=== PATIENT | female | born 1980 | race Caucasian/White ===

== ENCOUNTER 2024-08-24 10:15 | Emergency (ER) | payer OTHER, SELFPAY ==
--- NOTE | ~2024-08-24 | XR_ITS ---
XR foot LT min 3V Ordering provider: Carleen Calderón NP History: . lateral pain near 5th metatarsal Lt foot . Comparison: None. FINDINGS: BONES: No acute fracture or dislocation. JOINT SPACES: Normal. No tarsal coalition. SOFT TISSUES: Normal. Calcaneal spur. Ossification of the insertion of the tendo Achilles. IMPRESSION: No acute osseous abnormality left foot. Reviewed, dictated and finalized at location A.
[2024-08-24 10:35] VITALS: BP 133/78; PULSE 64; RESP 16; TEMP 36.2; O2SAT 100
--- NOTE | 2024-08-24 11:04 | ED.GENADULT ---
HPI - General Adult General Chief complaint: Extremity Injury, Lower Stated complaint: Injured Left Foot Time Seen by Provider: 08/24/24 11:00 Source: patient, RN notes reviewed and old records reviewed Mode of arrival: ambulatory Limitations: no limitations History of Present Illness HPI narrative: 44 year old female who presents to [facility] care with complaints of pain to the lateral aspect of her left foot near her distal 5th metatarsal region. 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 Patient reports that she does not know of any specific injury to her foot, no fall and did not step in hole. No bruising or swelling noted or any signs of injury full mobility of foot and toes, able to ambulate without limp noted. MD complaint: pain to lateral left distal metatarsal region Onset (ago): week(s) (1 week) Location: lower extremity (left lateral foot) Radiation: non-radiation Severity scale (1-10): 3 Quality: aching Treatments prior to arrival: none Related Data Home Medications ?Medication ?Instructions ?Recorded ?Confirmed ?Last Taken ?Type No Home Medications 08/24/24 08/24/24 Unknown History Allergies Allergy/AdvReac Type Severity Reaction Status Date / Time No Known Allergies Allergy Verified 08/24/24 12:47 Review of Systems Review of Systems: CONSTITUTIONAL: Denies fever, chills, or sweats. EYES: Denies visual changes, redness, or discharge. ENT: Denies rhinorrhea, congestion, sore throat, or otalgia. CARDIOVASCULAR: Denies chest pain, palpitations, or edema. RESPIRATORY: Denies cough or dyspnea. GASTROINTESTINAL: Denies abdominal pain, nausea, vomiting, or diarrhea. GENITOURINARY: Denies dysuria or hematuria. SKIN: Denies rash or itching. MUSCULOSKELETAL: Denies back pain,pain to lateral aspect of distal 5th metatarsal region, or myalgia. NEUROLOGIC: Denies headache, numbness, or weakness. PSYCHIATRIC: Denies anxiety or depression. All systems reviewed & are unremarkable except as noted in HPI and below PMFSH Surgical History Surgical History (Updated 08/25/24 @ 12:25 by Carleen Calderón NP) History of cholecystectomy Social History Social History (Updated 08/25/24 @ 12:26 by Carleen Calderón NP) Gender identity (if verbalized by the patient): Female Comments At time of signature, agree with nursing past medical, surgical, social and family history. There is no relevant family history pertinent to the presenting complaint Exam Narrative: GENERAL: Well-appearing, well-nourished, and in no acute distress. HEAD: Normocephalic, atraumatic. EYES: PERRLA and EOMI. ENT: Nares clear, no rhinorrhea or epistaxis. Mucous membranes moist.TM's normal with good light reflex, throat pink with no swelling noted. NECK: Supple.no lymphadenopathy CHEST: Clear to auscultation. No respiratory distress.SAO2 100% on room air HEART: Regular rate and rhythm. No murmur heard. Normal peripheral pulses. ABDOMEN: Soft, nontender, nondistended, normal active bowel sounds. EXTREMITIES: Normal range of motion. No edema.Reports pain to the distal left lateral aspect of base of 5th metatarsal area with no bruising or swelling noted, CSM intact. Patient is able to apply full weight bearing to her foot and ambulates without limp. SKIN: Warm, dry, no rash. NEURO: No focal deficits. Alert and oriented x3. Course Course Emergency Course: Patient is aware of diagnosis, understands and agrees to treatment plan.? Anticipatory guidance given.? Patient agrees to follow-up as directed and is aware of reasons to seek care at the emergency department. Portions of this record may have been created with voice recognition software Level of Care: Express Care Visit Vital Signs Vital signs: Vital Signs Temperature 36.2 C L 08/24/24 10:35 Pulse Rate 64 08/24/24 10:35 Respiratory Rate 16 08/24/24 10:35 Blood Pressure 133/78 08/24/24 10:35 Pulse Oximetry 100 08/24/24 10:35 Temperature 36.2 C L 08/24/24 10:35 Pulse Rate 64 08/24/24 10:35 Respiratory Rate 16 08/24/24 10:35 Blood Pressure 133/78 08/24/24 10:35 Pulse Oximetry 100 08/24/24 10:35 Reviewed Medical Decision Making MDM Narrative Medical decision making narrative: Exam findings and imaging show no acute concerns or changes; patient is non-toxic appearing and is in no distress.? Patient is appropriate for outpatient treatment and follow-up Differential Diagnosis Differential Diagnosis: left lateral foot pain base of 5th metatarsal area, sprain left foot, fracture of foot Medical Records Medical records reviewed: Yes I reviewed the external patient's medical records. Vital Signs Vital Signs: Vital Signs Temperature 36.2 C L 08/24/24 10:35 Pulse Rate 64 08/24/24 10:35 Respiratory Rate 16 08/24/24 10:35 Blood Pressure 133/78 08/24/24 10:35 Pulse Oximetry 100 08/24/24 10:35 Temperature 36.2 C L 08/24/24 10:35 Pulse Rate 64 08/24/24 10:35 Respiratory Rate 16 08/24/24 10:35 Blood Pressure 133/78 08/24/24 10:35 Pulse Oximetry 100 08/24/24 10:35 reviewed Imaging Data Attestation: I personally reviewed and interpreted this imaging study as follows: My impression: no fracture noted to left foot Radiologist's impression: [address] [place], [place] [id number] XRay Report Signed Patient: Brianna Dewey : 1980 MR#: [id number] Age: 44 Acct:[id number] [facility]: [facility] ADM Date: 08/24/24Attending Dr: Ordering Physician: Carleen Calderón APRN Date of Service: 08/24/24 Procedure(s): XR foot LT min 3V Accession Number(s): [id number] cc: FOOT SETTER PHYSICIAN; Carleen Calderón APRN~ XR foot LT min 3V Ordering provider: Carleen Calderón NP History: . lateral pain near 5th metatarsal Lt foot . Comparison: None. FINDINGS: BONES: No acute fracture or dislocation. JOINT SPACES: Normal. No tarsal coalition. SOFT TISSUES: Normal. Calcaneal spur. Ossification of the insertion of the tendo Achilles. IMPRESSION: No acute osseous abnormality left foot. Reviewed, dictated and finalized at location A. Please be advised this is a medical document. It is intended for [id number] communication. It is written in medical language and may contain unfamiliar abbreviations or verbiage. Medical documents are intended to carry relevant information, facts as evident, and the clinical opinion of the practitioner at the time of the encounter. This report may have been done utilizing a voice recognition system. Attempts have been made to correct errors. However, there may be uncorrected grammatical, spelling, and recognition errors present. The file time of this note does not necessarily represent the time of service. Dictated By: Kwesi Hargrove MD 08/24/24 1118 Signed By: <Electronically signed by Kwesi Hargrove MD in OV> Critical Care Time Critical Care Time Critical Care Time: No Discharge Plan Discharge Clinical Impression: Foot pain, left Patient Disposition: Home Condition: Stable Instructions: Antibiotic Form, Foot Contusion (ED) Additional Instructions: Tylenol for lesser pain Ibuprofen regularly for the next 2-3 days for the inflammation Follow-up with orthopedic surgeon or podiatry if continued problems Follow-up with PCP if further problems or concerns Ice to the area 20-30 minutes 4-6 times a day patient needs to quit jumping from the truck to use step to decrease impact to left foot Wear good supportive shoes If your symptoms persist, change or worsen significantly before you can contact your personal physician then please, without delay, go to the emergency department for further evaluation. Follow-up with PCP in 7-10 days or sooner if needed Follow up with PCP soon in regards to your blood pressure which is elevated above threshold for referral. Blood pressure above 120/80 may indicate pre-hypertension Elevate left foot as much as possible Patient Language: [place] Prescriptions: No Action No Home Medications Follow-up/Referrals: PHYSICIAN,FOOT SETTER [Primary Care Provider] - Stand Alone Forms: Work/School Release IP Time of Disposition: 11:42 Quality Ashutosh Coma Scale Eyes: Open Verbal: Oriented and Alert Motor: Follows Commands [place] Coma Total Score: 15
== END 2024-08-24 11:44 | disposition home or self-care (01) ==
PROVIDERS: Emergency Provider Registered Nurse
DX: M79.672 Pain in left foot (principal)
CPT/HCPCS: 73630; 99213; G0463